=== PATIENT | female | born 1990 | race Asian ===

== ENCOUNTER 2020-06-07 10:19 | Outpatient (CLI) | payer BC ==
--- NOTE | 2020-06-07 10:37 | RAD ---
XR Lumbar Spine Min 4 View History: Low back pain Comparison: None. Findings: There are 5 nonrib-bearing lumbar type vertebrae. No acute fracture or malalignment. Low-grade 10-15% anterior superior endplate height loss of L2. No significant listhesis. No abnormal translation with flexion or extension. Impression: Chronic appearing low-grade superior plate height loss of L2. No abnormal translation wit h flexion or extension.
== END 2020-06-07 10:20 | disposition home or self-care (01) ==
LOC: TBSIIMAG 10:19
PROVIDERS: ATTEND Neurological Surgery
DX: M54.5 Low back pain (principal)
CPT/HCPCS: 72110

== ENCOUNTER 2022-03-11 08:28 | Emergency (ER) | payer BC ==
[2022-03-11] MEDS ORDERED: Ketamine 50 MG/ML (10ML VIAL) ONE (08:44)
[2022-03-11] MEDS ORDERED: FENTANYL 50 MCG/ML 1 ML VIAL ONE (08:44)
[2022-03-11] MEDS ORDERED: Ondansetron PF 4 MG/2 ML Vial ONE (08:44)
[2022-03-11] MEDS ORDERED: Ketorolac Tromethamine 30 MG/ML VIAL ONE (10:18)
== END 2022-03-11 11:00 | disposition home or self-care (01) ==
LOC: ERS 08:28
DX: S82.52XA Displaced fracture of medial malleolus of left tibia, initial encounter for closed fracture (principal); F13.988 Sedative, hypnotic or anxiolytic use, unspecified with other sedative, hypnotic or anxiolytic-induced disorder; Y93.41 Activity, dancing
CPT/HCPCS: 27840; 96374; 96375; 99152; J1885; J2405; J3010

== ENCOUNTER 2022-03-14 07:17 | Outpatient (CLI) | payer BC ==
[2022-03-14 09:03] LABS: BHCG - Serum Negative (NEGATIVE); Pregs Control Background? CLEAR/WHITE (CLR/WHITE); Pregs Control Bar Appear? YES (CONTROL BAR)
[2022-03-14 09:09] LABS: #Basophils 0.1 10x3/uL (0.0-0.2); #Eosinphils 0.1 10x3/uL (0.0-0.5); #Monocytes 0.3 10x3/uL (0.0-1.1); #Neutrophils 3.7 10x3/uL (1.5-8.4); %Basophils 0.9 % (0.0-2.0); %Eosinophils 2.5 % (0.0-6.0); %Lymphocytes 27.2 % (18.0-47.0); %Monocytes 4.6 % (0.0-10.0); %Neutrophils 64.6 % (40.0-75.0); Hemoglobin 13.3 g/dL (12.0-15.5); Mean Corpuscular HGB CONC 33.4 g/dL (32.0-36.0); Mean Corpuscular Hemoglobin 31.4 pg (27.0-33.0); Mean Corpuscular Volume 93.9 fl (81.6-98.3); Mean Platelet Volume 13.1 fl (7.4-10.4); Platelet Count 150 10x3/uL (150-450); RBC Distribution Width 12.5 % (11.5-14.5); Red Blood Cell (RBC) Count 4.24 10x6/uL (3.90-5.03); White Blood Cell (WBC) Count 5.7 10x3/uL (3.5-10.5)
== END 2022-03-14 07:18 | disposition home or self-care (01) ==
LOC: LABBT 07:17
PROVIDERS: ATTEND Orthopaedic Surgery
DX: Z01.812 Encounter for preprocedural laboratory examination (principal); S82.842A Displaced bimalleolar fracture of left lower leg, initial encounter for closed fracture
CPT/HCPCS: 84703; 85025

== ENCOUNTER 2022-03-16 06:38 | Day surgery (SDC) | payer BC ==
[2022-03-15 15:23] VITALS: BMI 21.2
[2022-03-16] MEDS ORDERED: Ropivacaine 0.5% HCl/PF (150 MG/30 ML VIAL) ONE (08:05)
[2022-03-16] MEDS ORDERED: Midazolam HCl 2 mg/2 ml Vial ONE (08:05)
[2022-03-16] MEDS ORDERED: FENTANYL 50 MCG/ML 1 ML VIAL ONE (08:05)
[2022-03-16] MEDS ORDERED: Sodium Chloride 0.9% 100 ML ONE (08:33)
[2022-03-16] MEDS ORDERED: CEFAZOLIN 2 GM VIAL ONE (08:33)
[2022-03-16] MEDS ORDERED: Dexamethasone 20 MG/5 ML VIAL ONE (08:45)
[2022-03-16] MEDS ORDERED: Ondansetron PF 4 MG/2 ML Vial ONE (08:45)
[2022-03-16] MEDS ORDERED: Ketorolac Tromethamine 30 MG/ML VIAL ONE (08:45)
[2022-03-16] MEDS ORDERED: Phenylephrine 10 MG/ML VIAL ONE (08:45)
[2022-03-16] MEDS ORDERED: PROPOFOL 200 MG/20 ML VIAL ONE (08:45)
[2022-03-16] MEDS ORDERED: Zolpidem Tartrate 5 MG TAB PO PRN (11:00)
[2022-03-16] MEDS ORDERED: Promethazine HCl 25 MG/ML VIAL IM PRN (11:00)
[2022-03-16] MEDS ORDERED: traMADol HCl 50 MG TAB PO PRN ×2 (11:00)
[2022-03-16] MEDS ORDERED: Ropivacaine 0.2% 550 ML 550 ML NERVE BLCK SCH (11:00)
[2022-03-16] MEDS ORDERED: Ondansetron PF 4 MG/2 ML Vial IVP PRN (11:00)
[2022-03-16] MEDS ORDERED: HYDROcodone/Acetaminophen 5/325 mg Tablet PO PRN ×2 (11:00)
[2022-03-16] MEDS ORDERED: Morphine 2 MG/ML VIAL ONE (11:14)
[2022-03-16] MEDS ORDERED: Ketorolac Tromethamine 30 MG/ML VIAL IVP SCH (12:00)
== END 2022-03-16 12:31 | disposition home or self-care (01) ==
LOC: SDC 06:38
PROVIDERS: ATTEND Orthopaedic Surgery
PROC: 0QSK04Z Reposition Left Fibula with Internal Fixation Device, Open Approach (ICD-10-PCS; principal; 2022-03-16)
PROC: 0QSH04Z Reposition Left Tibia with Internal Fixation Device, Open Approach (ICD-10-PCS; principal; 2022-03-16)
DX: S82.842A Displaced bimalleolar fracture of left lower leg, initial encounter for closed fracture (principal); Z88.4 Allergy status to anesthetic agent; W18.30XA Fall on same level, unspecified, initial encounter; Y93.41 Activity, dancing
CPT/HCPCS: A4306; C1713; C1769; J1100; J1885; J2250; J2270; J2370; J2405; J2704; J2795; J3010; J3490